=== PATIENT | male | born 1940 | race Caucasian/White ===

== ENCOUNTER → 2016-06-21 | Outpatient (CLI) | payer MEDICARE ==
[~2016-06-21] MED LIST: LANS15CA45 PO
== END | disposition home or self-care (01) ==
LOC: CFH 09:41
PROVIDERS: ATTEND Internal Medicine
DX: I34.0 Nonrheumatic mitral (valve) insufficiency (principal); I65.23 Occlusion and stenosis of bilateral carotid arteries; Z87.891 Personal history of nicotine dependence
CPT/HCPCS: 93306; 93880

== ENCOUNTER → 2017-02-11 | Outpatient (CLI) | payer MEDICARE ==
[~2017-02-11] MED LIST changes: -LANS15CA45 PO; +LANS15CA60 PO
== END | disposition home or self-care (01) ==
LOC: RAD 09:19
PROVIDERS: ATTEND Internal Medicine
DX: R47.02 Dysphasia (principal); R13.10 Dysphagia, unspecified
CPT/HCPCS: 74230; 92611; G8996; G8997; G8998

== ENCOUNTER → 2017-05-17 | Outpatient (CLI) | payer MEDICARE | END | disposition home or self-care (01) | LOC: RAD 13:44 | PROVIDERS: ATTEND Internal Medicine | DX: R13.10 Dysphagia, unspecified (principal); J35.1 Hypertrophy of tonsils; H70.92 Unspecified mastoiditis, left ear | CPT/HCPCS: 70491 ==

== ENCOUNTER 2019-04-12 11:00 | Emergency (ER) | payer MEDICARE ==
[~2019-04-12] VITALS: Ht 175.3 cm; Wt 92.0 kg
[2019-04-12 12:03] LABS: BASOPHILS # (AUTO) 0.02 x10^3/uL (0-0.1); BASOPHILS % (AUTO) 1 % (0-1); EOSINOPHILS # (AUTO) 0.03 x10^3/uL (0-0.4); EOSINOPHILS % (AUTO) 1 % (1-7); LYMPHOCYTES # (AUTO) 1.19 x10^3/uL (1-3.4); LYMPHOCYTES % (AUTO) 30 % (22-44); MD NO; MEAN CORPUSCULAR HEMOGLOBIN 31.3 pg (27.5-34.5); MEAN CORPUSCULAR HGB CONC 33.5 g/dL (33.2-36.2); MEAN CORPUSCULAR VOLUME 93.6 fL (81-97); MEAN PLATELET VOLUME 7.9 fL (7.4-10.4); MONOCYTES # (AUTO) 0.34 x10^3/uL (0.2-0.8); MONOCYTES % (AUTO) 9 % (2-9); NEUTROPHILS # (AUTO) 2.43 x10^3/uL (1.8-6.8); NEUTROPHILS % (AUTO) 61 % (42-75); PLATELET COUNT 214 x10^3/uL (130-400); RED BLOOD COUNT 5.39 x10^6/uL (4.38-5.82); RED CELL DISTRIBUTION WIDTH 13.8 % (9.4-14.8)
[2019-04-12 12:13] LABS: ALANINE AMINOTRANSFERASE 24 U/L (12-78); ANION GAP 7 mmol/L (5-15); CALCIUM 8.2 mg/dL (8.5-10.1); CHLORIDE 107 mmol/L (98-107); CREATININE 0.89 mg/dL (0.7-1.3)
[2019-04-12 12:17] LABS: ALKALINE PHOSPHATASE 75 U/L (45-117); BILIRUBIN,TOTAL 0.7 mg/dL (0.2-1.0); TOTAL PROTEIN 7.4 g/dL (6.4-8.2); TROPONIN I < 0.015 ng/mL (0.000-0.045)
--- NOTE | 2019-04-12 13:15 | NUR ---
PT TO ROOM FROM LOBBY.
[2019-04-12] MEDS ORDERED: LISINOPRIL 10 MG TABLET PO ONE (14:00)
[2019-04-12] MEDS ORDERED: LISINOPRIL 10 MG TABLET ONE (14:10)
[2019-04-12 14:15] VITALS: BP 204/95
== END 2019-04-12 14:27 | disposition home or self-care (01) ==
LOC: ED 14:26
DX: I10 Essential (primary) hypertension (principal)
CPT/HCPCS: 36415; 71045; 80053; 84484; 85025; 93005; 99284

== ENCOUNTER 2020-03-14 13:42 | Emergency (ER) | payer MEDICARE ==
[~2020-03-14] VITALS: Ht 177.8 cm; Wt 90.1 kg
--- NOTE | 2020-03-14 14:09 | NUR ---
COVID +. PT CHECKS O2 LEVELS AT HOME. THIS AM 88% WHEN RESTING. OXYGEN OK WHEN AWAKE. CONNECTED TO MONITORING. CALL LIGHT IN REACH. MD AT BEDSIDE.
[2020-03-14 14:46] LABS: BASOPHILS % (AUTO) 0 % (0-1); EOSINOPHILS % (AUTO) 0 % (1-7); LYMPHOCYTES % (AUTO) 10 % (22-44); MEAN CORPUSCULAR HEMOGLOBIN 31.1 pg (27.5-34.5); MEAN CORPUSCULAR HGB CONC 34.4 g/dL (33.2-36.2); MEAN PLATELET VOLUME 7.4 fL (7.4-10.4); MONOCYTES % (AUTO) 5 % (2-9); NEUTROPHILS % (AUTO) 85 % (42-75); PLATELET COUNT 139 x10^3/uL (130-400); RED BLOOD COUNT 4.86 x10^6/uL (4.38-5.82); RED CELL DISTRIBUTION WIDTH 13.1 % (9.4-14.8)
[2020-03-14 14:49] LABS: MD NO
--- NOTE | 2020-03-14 14:49 | NUR ---
PIV PLACED, TWO SETS BLOOD CX COLLECTED. PT RESTING ON GURNEY. PT SPEAKING IN FULL SENTENCES.
[2020-03-14 14:56] LABS: ALBUMIN 3.4 g/dL (3.4-5.0); ANION GAP 7 mmol/L (5-15); CALCIUM 8.5 mg/dL (8.5-10.1); CHLORIDE 105 mmol/L (98-107)
[2020-03-14 15:02] LABS: ALANINE AMINOTRANSFERASE 32 U/L (12-78); ALKALINE PHOSPHATASE 80 U/L (45-117); BILIRUBIN,TOTAL 0.9 mg/dL (0.2-1.0); CREATININE 0.83 mg/dL (0.7-1.3); TOTAL PROTEIN 7.2 g/dL (6.4-8.2); TROPONIN I < 0.015 ng/mL (0.000-0.045)
--- NOTE | 2020-03-14 15:05 | NUR ---
ALL RESULTS ARE BACK AT THIS TIME. CHART UP FOR RECHECK.
[2020-03-14] MEDS ORDERED: DEXAMETHASONE 4 MG/ML, 1ML ONE (16:11)
[2020-03-14] MEDS ORDERED: CEFTRIAXONE PMX 1GM/50ML 50 ML ONE (16:11)
[2020-03-14 16:18] VITALS: BP 141/86
--- NOTE | 2020-03-14 16:18 | NUR ---
MEDS ADMIN PER MAY. IV ABX STARTED AFTER 2 SETS BLOOD CX COLLECTED. PT RESTING ON [place]. RESP EVEN AND UNLABORED.
[2020-03-14] MEDS ORDERED: CEFTRIAXONE PMX 1GM/50ML 50 ML IV ONE (16:30)
[2020-03-14] MEDS ORDERED: AZITHROMYCIN 500 MG in SODIUM CHLORIDE 0.9% 250 ML IV ONE (16:30)
[2020-03-14] MEDS ORDERED: DEXAMETHASONE 4 MG/ML, 1ML IVPush ONE (16:30)
== END 2020-03-14 17:32 | disposition home or self-care (01) ==
LOC: ED 14:38
DX: U07.1 COVID-19 (principal); J12.89 Other viral pneumonia; R06.00 Dyspnea, unspecified; R06.02 Shortness of breath; Z87.891 Personal history of nicotine dependence
CPT/HCPCS: 36415; 71045; 80053; 83605; 83880; 84484; 85025; 87040; 93005; 96365; 96375; 99285; J0696; J1100